=== PATIENT | male | born 1975 | race Caucasian/White ===

== ENCOUNTER 2018-12-02 12:43 | Inpatient (IN) | payer BC ==
[2018-12-02] MEDS ORDERED: MIDAZOLAM 1 MG/ML 2 ML INJ (14:09)
[2018-12-02] MEDS ORDERED: BUPIVACAINE 0.25% (MPF) 30 ML INJ (14:18)
[2018-12-02] MEDS ORDERED: POLYMYXIN/BACITRACIN 1L IRRIG (14:19)
[2018-12-02] MEDS ORDERED: FENTAnyl 50 MCG/ML VIAL (14:28)
[2018-12-02] MEDS ORDERED: HYDROCODONE/APAP (10/325) TAB PO (14:30)
[2018-12-02] MEDS ORDERED: HYDROmorphONE 1 MG/5 ML IV SYRINGE IV (14:30)
[2018-12-02] MEDS ORDERED: ALBUTEROL 0.083% (NEB) 2.5 MG/3 ML AMP HHN (14:30)
[2018-12-02] MEDS ORDERED: ONDANSETRON 4 MG INJ IV ×2 (14:30)
[2018-12-02] MEDS: CEFAZOLIN 1 GM/50 ML (PMX) 50 ML IVPB ×2 (14:30→22:13)
[2018-12-02] MEDS ORDERED: BISACODYL 10 MG SUPP PR (14:30)
[2018-12-02] MEDS ORDERED: NALOXONE (0.4 MG/ML) INJ IV (14:30)
[2018-12-02] MEDS ORDERED: DIPHENHYDRAMINE 50 MG INJ IV (14:30)
[2018-12-02] MEDS ORDERED: CEPASTAT LOZENGE MT (14:30)
[2018-12-02] MEDS ORDERED: AL HYDROX/MG HYDROX/SIMETH 30 ML CUP PO (14:30)
[2018-12-02] MEDS ORDERED: FENTAnyl 50 MCG/ML VIAL IV (14:30)
[2018-12-02] MEDS ORDERED: DIPHENHYDRAMINE 25 MG CAP PO (14:30)
[2018-12-02] MEDS ORDERED: METOCLOPRAMIDE 10 MG INJ IV (14:30)
[2018-12-02] MEDS ORDERED: ACETAMINOPHEN 325 MG TAB PO (14:30)
[2018-12-02] MEDS ORDERED: DEXAMETHASONE 4 MG/ML 5 ML INJ (15:06)
[2018-12-02] MEDS: SURGIFOAM POWDER 1 GM KIT (15:18)
[2018-12-02] MEDS: THROMBIN (BOVINE) 5,000 UNIT VIAL TP ×2 (15:18→15:19)
[2018-12-02] MEDS: BUPIVACAINE 0.5%/EPI (SDV) 30 ML INJ (15:18)
[2018-12-02] MEDS: CA CHLORIDE 10% 10 ML SYRINGE (15:19)
[2018-12-02] MEDS: HEPARIN 1000 UNITS/ML 10 ML INJ (15:19)
[2018-12-02] MEDS ORDERED: PROPOFOL 40 ML (16:48)
[2018-12-02] MEDS ORDERED: CEFAZOLIN 1 GM INJ (16:48)
[2018-12-02] MEDS ORDERED: SUGAMMADEX SODIUM 200 MG/2 ML VIAL IV (16:48)
[2018-12-02] MEDS ORDERED: ROCURONIUM 50 MG INJ (16:48)
[2018-12-02] MEDS ORDERED: SUCCINYLCHOLINE CHLORIDE 100 MG/5 ML SYG IV (16:48)
[2018-12-02] MEDS ORDERED: LIDOCAINE 100 MG SYRINGE (16:48)
[2018-12-02] MEDS: MEPERIDINE 25 MG INJ IV (17:13)
[2018-12-02] MEDS: HYDROmorphONE 1 MG/5 ML IV SYRINGE IV ×5 (17:18→17:41)
[2018-12-02] MEDS: FENTAnyl 50 MCG/ML VIAL IV ×3 (17:45→18:14)
[2018-12-02] MEDS: D5W-0.45 NACL + KCL 20 MEQ 1,000 ML IV (18:12)
[2018-12-02] MEDS: DIPHENHYDRAMINE 50 MG INJ IV (18:19)
[2018-12-02] MEDS: HYDROmorphONE 0.5 MG/0.5 ML SYG IV ×3 (18:38→23:17)
[2018-12-02] MEDS: CYCLOBENZAPRINE 10 MG TAB PO (18:46)
[2018-12-02] MEDS: DOCUSATE SODIUM 100 MG CAP PO (20:26)
[2018-12-02] MEDS: HYDROCODONE/APAP (10/325) TAB PO (20:33)
[2018-12-03] MEDS: D5W-0.45 NACL + KCL 20 MEQ 1,000 ML IV ×3 (00:02→16:05)
[2018-12-03] MEDS: clonAZEPAM 0.5 MG TAB PO ×2 (00:07→22:10)
[2018-12-03] MEDS: CYCLOBENZAPRINE 10 MG TAB PO ×3 (02:10→23:03)
[2018-12-03] MEDS: HYDROCODONE/APAP (10/325) TAB PO ×3 (02:10→11:06)
[2018-12-03] MEDS: HYDROmorphONE 0.5 MG/0.5 ML SYG IV ×6 (03:16→23:53)
[2018-12-03 05:18] LABS: ADD MAN DIFF? NO
[2018-12-03 05:21] LABS: WHITE BLOOD COUNT 13.3 10^3/ul (4.8-10.8)
[2018-12-03 05:21] LABS: BASOPHILS % 0.1 % (0.0-2.0); HEMATOCRIT 42.2 % (42.0-52.0); HEMOGLOBIN 14.9 g/dl (14.0-18.0); LYMPHOCYTES # 1.3 10^3/ul (0.8-2.9); LYMPHOCYTES % 9.4 % (15.0-51.0); MEAN CORPUSCULAR HEMOGLOBIN 30.7 pg (29.0-33.0); MEAN CORPUSCULAR HGB CONC 35.3 g/dl (32.0-37.0); MEAN PLATELET VOLUME 9.3 fl (7.4-10.4); MONOCYTE # 0.6 10^3/ul (0.3-0.9); MONOCYTES % 4.7 % (0.0-11.0); NEUTROPHIL # 11.4 10^3/ul (1.6-7.5); NEUTROPHILS % 85.3 % (39.0-77.0); PLATELET COUNT 309 10^3/UL (140-415); RED BLOOD COUNT 4.85 10^6/ul (4.70-6.10); RED CELL DISTRIBUTION WIDTH 13.1 % (11.5-14.5)
[2018-12-03] MEDS: CEFAZOLIN 1 GM/50 ML (PMX) 50 ML IVPB (05:33)
[2018-12-03 05:37] LABS: ANION GAP 9 (5-13); BLOOD UREA NITROGEN 17 mg/dl (7-20); CALCIUM 8.9 mg/dl (8.4-10.2); CARBON DIOXIDE 27 mmol/L (21-31); CHLORIDE 104 mmol/L (97-110); Estimated GFR > 60 mL/min (>60); GLUCOSE 124 mg/dl (70-220); MAGNESIUM 1.8 mg/dl (1.7-2.5); POTASSIUM 4.4 mmol/L (3.5-5.1); SODIUM 140 mmol/L (135-144)
[2018-12-03] MEDS: DOCUSATE SODIUM 100 MG CAP PO ×2 (08:39→21:18)
[2018-12-03] MEDS ORDERED: HYDROCODONE/APAP (10/325) TAB PO (11:00)
[2018-12-03] MEDS: DEXAMETHASONE 10 MG/ML 1 ML INJ IV (14:05)
[2018-12-03] MEDS: OXYCODONE/ACETAMINOPHEN (10/325) TAB PO ×3 (14:06→21:18)
[2018-12-04] MEDS: OXYCODONE/ACETAMINOPHEN (10/325) TAB PO ×3 (00:52→10:18)
[2018-12-04] MEDS: D5W-0.45 NACL + KCL 20 MEQ 1,000 ML IV (05:35)
[2018-12-04] MEDS: DOCUSATE SODIUM 100 MG CAP PO (07:43)
[2018-12-04] MEDS: CYCLOBENZAPRINE 10 MG TAB PO (07:43)
[2018-12-04] MEDS: HYDROmorphONE 0.5 MG/0.5 ML SYG IV (11:17)
== END 2018-12-04 14:16 | disposition home or self-care (01) | DRG 520 ==
LOC: REC 12:43 → MS1 15:30 → REC 15:35 → MS1 18:28
PROC: 01NB0ZZ Release Lumbar Nerve, Open Approach (ICD-10-PCS; principal; 2018-12-02 14:30)
PROC: 0SB20ZZ Excision of Lumbar Vertebral Disc, Open Approach (ICD-10-PCS; 2018-12-02 14:30)
PROC: 01NR0ZZ Release Sacral Nerve, Open Approach (ICD-10-PCS; 2018-12-02 14:30)
DX: M48.061 Spinal stenosis, lumbar region without neurogenic claudication (principal); M48.07 Spinal stenosis, lumbosacral region; M51.16 Intervertebral disc disorders with radiculopathy, lumbar region; M51.17 Intervertebral disc disorders with radiculopathy, lumbosacral region
CPT/HCPCS: 72020; 80048; 83735; 85025; 86999; 88304; 97116; 97162; 97530